=== PATIENT | male | born 1935 | race Caucasian/White ===

== ENCOUNTER 2022-04-30 10:17 | Day surgery (SDC) | payer MEDICARE ==
[2022-04-27 15:36] LABS: BASOPHILS % (AUTO) 0.6 % (0.0-5.0); HEMATOCRIT 48.2 % (42-54); LYMPHOCYTES % (AUTO) 38.9 % (21.0-51.0); MEAN CORPUSCULAR HEMOGLOBIN 30.5 pg (27.0-33.0); MEAN CORPUSCULAR HGB CONC 32.6 g/dL (32.0-36.0); MEAN CORPUSCULAR VOLUME 93.8 fL (79-99); NEUTROPHILS % (AUTO) 46.2 % (40.0-77.0); PLATELET COUNT (AUTO) 162 K/uL (130-400); RED BLOOD CELL COUNT(AUTO) 5.14 MIL/uL (4.50-6.20); RED CELL DISTRIBUTION WIDTH 13.4 % (11.0-15.5); WHITE BLOOD COUNT (AUTO) 6.4 K/uL (4.8-10.8)
[2022-04-27 15:38] LABS: APPEARANCE,URINE Clear (CLEAR); BILIRUBIN,URINE Negative (NEGATIVE); COLOR,URINE Yellow (YELLOW); GLUCOSE, URINE (UA) Negative (NEGATIVE); KETONES,URINE Negative (NEGATIVE); LEUKOCYTE ESTERASE ,URINE Negative (NEGATIVE); NITRATE,URINE Negative (NEGATIVE); OCCULT BLOOD,URINE Negative (NEGATIVE); PH,URINE 7.5 (5.0-8.0); PROTEIN,URINE Negative (NEGATIVE)
[2022-04-27 15:48] LABS: CREATININE 0.7 mg/dL (0.5-1.5); POTASSIUM 4.7 mmol/L (3.5-5.1)
[2022-04-27 15:49] LABS: INR 1.13 (0.85-1.15); PROTHROMBIN TIME 12.2 SEC (9.6-11.6)
[2022-04-27 15:50] LABS: PARTIAL THROMBOPLASTIN TIME 38.4 SEC (26.3-35.5)
[2022-04-28 10:20] VITALS: BP 165/88
[2022-04-30] VITALS (8 sets, daily range): BP systolic 123–147; BP diastolic 84–93
[~2022-04-30] VITALS: Ht 154.9 cm; Wt 88.1 kg
[~2022-04-30 10:17] MED LIST: 0.9%NACL 1000ML 1,000 ML IV SCH; AMLO-386 PO; DiphenhydrAMINE HCL 50 MG/ML VIAL IVP SCH; PANT40TA54 PO; RIVA20TA PO; ROSU5TAB PO
[2022-04-30] MEDS ORDERED: 0.9% NACL 500ML IV.SOLN 500 ML IV ONE (11:28)
[2022-04-30] MEDS ORDERED: 0.9%NACL 1000ML 1,000 ML IV ONE (11:30)
[2022-04-30] MEDS ORDERED: DIPH25 PO (12:47)
[2022-04-30] MEDS ORDERED: ASPI-1197 PO (12:47)
[2022-04-30] MEDS ORDERED: DiphenhydrAMINE HCL 50 MG/ML VIAL ONE (14:46)
[2022-04-30] MEDS ORDERED: CEFAZOLIN SODIUM 1 GM VIAL ONE (15:11)
[2022-04-30] MEDS ORDERED: BUPIVACAINE/PF 0.25% 30ML VIAL IJ ONE (15:11)
[2022-04-30] MEDS ORDERED: FENTANYL CITRATE PF 50 MCG/1 ML 2ML VIAL ONE (15:12)
[2022-04-30] MEDS ORDERED: MIDAZOLAM HCL 1 MG/ML 2ML VIAL ONE (15:12)
[2022-04-30] MEDS ORDERED: LIDOCAINE HCL 1% MDV 50ML VIAL ONE (15:13)
[2022-04-30] MEDS ORDERED: IOHEXOL-350 50ML VIAL IV ONE (15:34)
[2022-04-30] MEDS ORDERED: LIDOCAINE HCL 400MG/20ML VIAL ONE (16:09)
[2022-04-30] MEDS ORDERED: OCTYL 2-CYANOACRYLATE 1 EACH TP ONE (16:55)
[2022-04-30] MEDS ORDERED: ONDANSETRON 4MG INJ IV PRN (17:30)
[2022-04-30] MEDS ORDERED: ACETAMINOPHEN WITH CODEINE 1 TAB TAB PO PRN ×2 (17:30)
== END 2022-04-30 20:40 | disposition home or self-care (01) ==
LOC: DAH 10:17
PROVIDERS: ATTEND Internal Medicine Interventional Cardiology
DX: I44.2 Atrioventricular block, complete (principal); I10 Essential (primary) hypertension; I48.0 Paroxysmal atrial fibrillation; I25.10 Atherosclerotic heart disease of native coronary artery without angina pectoris; E78.5 Hyperlipidemia, unspecified; Z79.01 Long term (current) use of anticoagulants; Z95.1 Presence of aortocoronary bypass graft; Z79.899 Other long term (current) drug therapy
CPT/HCPCS: 33208; 36415; 71045; 80048; 81003; 85025; 85610; 85730; 93005; A4215; A4216; A4221; A4222; A4223 ×3; A4606; A4663; C1785; C1894 ×2; C1898 ×2; J0690; J1200; J2250; J3010; J3490 ×3; J7030; J7040; Q9967; 99156; 99157

== ENCOUNTER → 2023-02-25 | Outpatient (CLI) | payer MEDICARE ==
[~2023-02-25] MED LIST changes: -0.9%NACL 1000ML 1,000 ML IV SCH; +ASPI-1197 PO; +DIPH-1242 PO; -DiphenhydrAMINE HCL 50 MG/ML VIAL IVP SCH
== END | disposition home or self-care (01) ==
LOC: RAH 09:14
PROVIDERS: ATTEND Anesthesiology
DX: M47.817 Spondylosis without myelopathy or radiculopathy, lumbosacral region (principal); M41.87 Other forms of scoliosis, lumbosacral region; M48.07 Spinal stenosis, lumbosacral region
CPT/HCPCS: 72148